=== PATIENT | female | born 1985 | race Caucasian/White ===

== ENCOUNTER 2023-08-18 20:12 | Outpatient (REF) | payer SELFPAY ==
[2023-08-21 15:09] LABS: Age Gdln ACOG Testing Note (.); HPV Aptima Negative (Negative); IGP, Aptima HPV, rfx 16/18,45 Note (.)
== END 2023-08-18 20:13 | disposition home or self-care (01) ==
LOC: LAB 20:12
PROVIDERS: Visit Provider Physician Assistant
DX: Z12.4 Encounter for screening for malignant neoplasm of cervix (principal)
CPT/HCPCS: 87624; G0145

== ENCOUNTER 2024-10-06 11:03 | Emergency (ER) | payer BC, SELFPAY ==
[2024-10-06 11:08] VITALS: BP 138/85; PULSE 87; TEMP 37; O2SAT 100; BMI 25.6
--- NOTE | 2024-10-06 11:12 | CT_ITS ---
[address] [address] Patient Name: AUSTEN SHANNON MRN: [id number] date: 1985 Sex: F Assigned Patient Location: ER Current Patient Location: .[facility] Accession/Order Number: [id number] Exam Date: 10/06/2024 11:24 Report Date: 10/06/2024 12:40 At the request of: WINNIE GIBSON Procedure: CT abdomen pelvis wo con EXAMINATION: CT abdomen pelvis wo con HISTORY: R flank/abd pain COMPARISON: No relevant comparison available. TECHNIQUE: Axial, Coronal, and Sagittal images were obtained without and/or with IV contrast as indicated by examination type. Dose reduction techniques were achieved by using automated exposure control and/or adjustment of mA and/or kV according to patient size and/or use of iterative reconstruction technique. FINDINGS: LUNG BASES: No visible pulmonary or pleural disease. LIVER: A few small hypodensities favoring cysts or hemangiomas. No enlargement, atrophy, suspicious density, or significant focal lesion. BILIARY: No dilatation or calcification. PANCREAS: No lesion, fluid collection, or abnormal duct dilatation. SPLEEN: No enlargement or focal lesion. ADRENALS: No mass or enlargement. KIDNEYS: No mass, obstruction, or calcification. BOWEL/MESENTERY: No visible mass, obstruction, or bowel wall thickening. Normal appendix. AORTA/VASCULAR: No aneurysm or dissection. RETROPERITONEUM: No mass or adenopathy. LYMPH NODES: No adenopathy. URINARY BLADDER: No visible focal wall thickening, lesion, or calculus. PELVIC ORGANS: No visible mass. Pelvic organs appropriate for patient age. ABDOMINAL WALL: No mass or hernia. BONES: No bony lesion or fracture. OTHER: Negative. CT/CT abdomen pelvis wo con IMPRESSION: 1. No abnormal or suspicious findings to account for patient's symptoms. Electronically authenticated by: JULIET MCELROY Date: 10/06/2024 12:40
[2024-10-06] MEDS: ONDANSETRON PF 4 MG/2 ML VIAL IV (11:21)
[2024-10-06] MEDS: KETOROLAC TROMETHAMINE 30 MG/ML VIAL 15 MG IVP ×2 (11:23→13:12)
[2024-10-06 11:27] LABS: Basophils Absolute Auto 0.1 10^3/uL (0.0-0.1); Basophils Percent Auto 0.5 % (0.2-2.0); Eosinophils Absolute Auto 0.1 10^3/uL (0.0-0.7); Eosinophils Percent Auto 0.9 % (0.9-7.0); Hematocrit 42.1 % (36.0-48.0); Hemoglobin 14.3 g/dL (12.0-16.0); Immature Granulocytes Abs Auto 0.04 10^3/uL (0.00-0.03); Immature Granulocytes Pct Auto 0.4 % (0.0-0.5); Lymphocytes Percent Auto 19.3 % (20.5-60.0); Mean Corpuscular Hemoglobin 31.5 pg (26.7-34.0); Mean Corpuscular Volume 92.7 fL (81.0-99.0); Mean Platelet Volume 9.1 fL (9.5-13.5); Monocytes Absolute Auto 0.6 10^3/uL (0.3-0.8); Monocytes Percent Auto 6.1 % (1.7-12.0); Neutrophils Absolute Auto 7.5 10^3/uL (1.4-6.5); Neutrophils Percent Auto 72.8 % (43.0-75.0); Platelet Count 331 10^3/uL (150-450); Red Blood Count 4.54 10^6/uL (4.20-5.40); Red Cell Distribution Width 11.1 % (11.0-15.0); White Blood Count 10.3 10^3/uL (4.0-11.0)
[2024-10-06 11:28] LABS: Bilirubin Urine NEGATIVE (NEGATIVE); Blood Urine NEGATIVE (NEGATIVE); Clarity Urine SL CLOUDY (CLEAR); Color Urine YELLOW (YELLOW); Glucose Urine UA NEGATIVE (NEGATIVE); Ketones Urine 15 mg/dL (NEGATIVE); Leukocyte Esterase Urine TRACE (NEGATIVE); Nitrite Urine NEGATIVE (NEGATIVE); Protein Urine TRACE mg/dL (NEG/TRACE); pH Urine 7.5 (5.0-9.0)
[2024-10-06 11:30] LABS: Urine Microscopic Indicated YES
--- NOTE | 2024-10-06 11:30 | ED_ITS ---
HPI HPI - General Adult General Chief complaint: Abdominal Pain Stated complaint: ABDOMINAL PAIN Time Seen by Provider: 10/06/24 11:04 Source: patient Mode of arrival: walk-in Limitations: no limitations History of Present Illness HPI narrative: Patient presents to ED complaining of right sided abdominal pain and flank pain. She said she noticed a little bit of flank pain and stomach pain on Thursday and she took some Zofran and it seemed to get a little bit better. It sort of been on and off since then but today it came on much much stronger. She has pain in the right flank that radiates to the right mid abdomen but also has right upper quadrant and right lower quadrant pain as well. Nausea no vomiting. No fevers. She does have pain with palpation and movement. She has been able to go to the bathroom no difficulties with urination or bowel movements. Patient denies any history of kidney stones or gallstones. She has had her tubes removed in the past. No other abdominal surgeries she does still have her appendix. She is tearful from the pain but otherwise alert and oriented Related Data Home Medications ?Medication ?Instructions ?Recorded ?Confirmed bupropion HCl 300 mg 24 hr tablet, 300 mg PO BEDTIME 10/06/24 10/06/24 extended release buspirone 15 mg tablet 15 mg PO TID 10/06/24 10/06/24 dextroamphetamine-amphetamine 20 20 mg PO BID 10/06/24 10/06/24 mg tablet escitalopram oxalate 10 mg tablet 10 mg PO DAILY 10/06/24 10/06/24 lamotrigine 25 mg tablet 25 mg PO DAILY 10/06/24 10/06/24 Previous Rx's ?Medication ?Instructions ?Recorded cephalexin 500 mg capsule 500 mg PO BID 7 days #14 caps 10/06/24 ketorolac 10 mg tablet 10 mg PO Q8H PRN pain 7 days #14 10/06/24 tabs Allergies Allergy/AdvReac Type Severity Reaction Status Date / Time amoxicillin (From Augmentin) AdvReac Mild Vomiting Verified 10/06/24 11:12 clavulanic acid (From AdvReac Mild Vomiting Verified 10/06/24 11:12 Augmentin) Opioid HPI Opioid Management Most Recent Opioid Data: Last Pain Scale 10 10/06/24 11:25 10/06/24 Last MAR Pain Assessment 10/06/24 11:23 Review of Systems ROS Status of ROS 10 or more systems reviewed and unremark able except as noted in history and below Exam Narrative Exam Narrative: Time Seen: [] Vital Signs: [Per nurse's notes.] General: [Alert] Skin: [Warm, dry, no rash.] Head: [Normocephalic, atraumatic.] Neck: [Supple, trachea midline.] Eye: [Pupils are equal, round and reactive to light, extraocular movements are intact, normal conjunctiva.] Ears, nose, mouth and throat: oral mucosa moist. Cardiovascular: [Regular rate and rhythm, no murmur.] Respiratory: [Lungs are clear to auscultation, respirations are non-labored, breath sounds are equal.] Chest wall: [No tenderness, no deformity.] Gastrointestinal: [Soft, tenderness to palpation right upper quadrant right mid abdomen and right lower quadrant. Right CVA tenderness. Patient does have some guarding on that right side as well. MSK: 5 out of 5 muscle strength x 4 extremities no calf pain or edema Lymphatics: [No lymphadenopathy.] Psychiatric: [Cooperative, appropriate mood & affect.] Tearful from pain otherwise appropriate Neurological: [Alert and oriented to person, place, time, and situation, no focal neurological deficit observed.] Constitutional Vital Signs, click to edit/add: Last Vital Signs Temp 98.6 F 10/06/24 11:08 Pulse 78 10/06/24 12:36 Resp 18 10/06/24 12:36 BP 103/55 10/06/24 12:36 Pulse Ox 100 10/06/24 12:36 O2 Del Method Room Air 10/06/24 12:36 Course Vital Signs Vital signs: Vital Signs Temperature 98.6 F 10/06/24 11:08 Pulse Rate 87 10/06/24 11:08 Respiratory Rate 20 10/06/24 11:08 Blood Pressure 138/85 10/06/24 11:08 Pulse Oximetry 100 10/06/24 11:08 Oxygen Delivery Method Room Air 10/06/24 11:08 Temperature 98.6 F 10/06/24 11:08 Pulse Rate 78 10/06/24 12:36 Respiratory Rate 18 10/06/24 12:36 Blood Pressure 103/55 10/06/24 12:36 Pulse Oximetry 100 10/06/24 12:36 Oxygen Delivery Method Room Air 10/06/24 12:36 Medical Decision Making MDM Narrative Medical decision making narrative: Patient's labs show UTI otherwise negative. Vital signs stable. CT scan shows no acute findings, no kidney stone no gallstones no gallbladder inflammation and no acute appendicitis. Patient does have some prominent stool on the right side of the abdomen. She states she has been having bowel movements. Patient is feeling better after Toradol and Zofran. She was given a prescription for ketorolac and Keflex for home. She was given 1 dose of IV antibiotics here. Return to ED if worsening symptoms otherwise follow-up with family doctor. Patient and family are comfortable care plan for home Differential Diagnosis Differential Diagnosis: UTI, pyelonephritis, kidney stone, acute appendicitis, acute cholecystitis, Medical Records Medical records reviewed: Yes I reviewed the patient's medical records Lab Data Lab results reviewed: Yes I reviewed the patient's lab results Labs: Lab Results 10/06/24 10/06/24 Range/Units 11:17 11:20 WBC 10.3 (4.0-11.0) 10^3/uL RBC 4.54 (4.20-5.40) 10^6/uL Hgb 14.3 (12.0-16.0) g/dL Hct 42.1 (36.0-48.0) % MCV 92.7 (81.0-99.0) fL MCH 31.5 (26.7-34.0) pg MCHC 34.0 (29.9-35.2) g/dL RDW 11.1 (11.0-15.0) % Plt Count 331 (150-450) 10^3/uL MPV 9.1 L (9.5-13.5) fL Neut % (Auto) 72.8 (43.0-75.0) % Lymph % (Auto) 19.3 L (20.5-60.0) % Stevens % (Auto) 6.1 (1.7-12.0) % Eos % (Auto) 0.9 (0.9-7.0) % Baso % (Auto) 0.5 (0.2-2.0) % Neut # (Auto) 7.5 H (1.4-6.5) 10^3/uL Lymph # (Auto) 2.0 (1.2-3.8) 10^3/uL Stevens # (Auto) 0.6 (0.3-0.8) 10^3/uL Eos # (Auto) 0.1 (0.0-0.7) 10^3/uL Baso # (Auto) 0.1 (0.0-0.1) 10^3/uL Abs Immat Gran (auto) 0.04 H (0.00-0.03) 10^3/uL Imm/Tot Granulo (auto) 0.4 (0.0-0.5) % Sodium 139 (136-145) mmol/L Potassium 4.0 (3.5-5.1) mmol/L Chloride 102 (98-107) mmol/L Carbon Dioxide 25.8 (21.0-32.0) mmol/L Anion Gap 15.2 BUN 12.0 (7.0-18.0) mg/dL Creatinine 0.85 (0.55-1.02) mg/dL Est GFR ( Amer) >60 (>=60 mL/min/1.73m^2) Est GFR (Non-Af Amer) >60 (>=60 mL/min/1.73m^2) BUN/Creatinine Ratio 14.1 Glucose 96 (74-106) mg/dL Calcium 8.9 (8.5-10.1) mg/dL Total Bilirubin 0.5 (0.2-1.0) mg/dL AST 16 (15-37) U/L ALT 26 (14-59) U/L Alkaline Phosphatase 63 (46-116) U/L Total Protein 7.3 (6.4-8.2) g/dL Albumin 4.1 (3.4-5.0) g/dL Globulin 3.2 g/dL Albumin/Globulin Ratio 1.3 Lipase 40.0 (16.0-77.0) U/L Urine Color Yellow (YELLOW) Urine Clarity Sl cloudy (CLEAR) Urine pH 7.5 (5.0-9.0) Ur Specific [place] 1.020 (1.005-1.025) Urine Protein Trace (NEG/TRACE) mg/dL Urine Glucose (UA) Negative (NEGATIVE) mg/dL Urine Ketones 15 A (NEGATIVE) mg/dL Urine Occult Blood Negative (NEGATIVE) Urine Nitrite Negative (NEGATIVE) Urine Bilirubin Negative (NEGATIVE) Urine Urobilinogen 1.0 (0.2-1.0) EU/dL Ur Leukocyte Esterase Trace A (NEGATIVE) Urine RBC 0-2 (0-2) #/HPF Urine WBC 0-2 A (NONE SEEN) #/HPF Ur Squamous Epith Cells Few A (NONE/RARE) #/LPF Urine Crystals Seen A (None Seen) #/HPF Amorphous Sediment Moderate Urine Bacteria Moderate A (NONE SEEN) #/HPF Urine Casts None seen (NONE SEEN) #/LPF Urine Mucus Trace A (NONE SEEN) Ur Culture Indicated? Yes Imaging Data CT scan - abdomen: Radiologist's impression: ITS Impressions Abdomen/Pelvis CT 10/06/24 11:12 IMPRESSION: 1. No abnormal or suspicious findings to account for patient's symptoms. Electronically authenticated by: JULIET MCELROY Date: 10/06/2024 12:40 Discharge Plan Discharge Chief Complaint: Abdominal Pain Clinical Impression: UTI (urinary tract infection) Patient Disposition: Home, Self-Care Time of Disposition Decision: 13:11 Condition: Good Mode of Transportation: Private Vehicle Prescriptions / Home Meds: New cephalexin 500 mg capsule 500 mg PO BID 7 Days Qty: 14 0RF ketorolac 10 mg tablet 10 mg PO Q8H PRN (Reason: pain) 7 Days Qty: 14 0RF No Action bupropion HCl 300 mg tablet extended release 24 hr 300 mg PO BEDTIME dextroamphetamine-amphetamine 20 mg tablet 20 mg PO BID escitalopram oxalate 10 mg tablet 10 mg PO DAILY lamotrigine 25 mg tablet 25 mg PO DAILY buspirone 15 mg tablet 15 mg PO TID Print Language: Greenlandic Instructions: Urinary Tract Infection in Women (ED) Referrals: Martha Coy RN [Emergency Nurse] - 1 week Physician,Non-Staff, MD [Primary Care Provider] - 1 week Discharge Date/Time: 10/06/24 14:04
[2024-10-06 11:35] LABS: Bacteria Urine MODERATE #/HPF (NONE SEEN); Crystals Seen? Seen #/HPF (None Seen); Mucus Urine TRACE (NONE SEEN); RBC Urine 0-2 #/HPF (0-2); Squamous Epithelial Cell Urine FEW #/LPF (NONE/RARE); WBC Urine 0-2 #/HPF (NONE SEEN)
[2024-10-06 11:36] LABS: Amorphous Sediment Urine MODERATE; Cast Seen? NONE SEEN #/LPF (NONE SEEN); Urine Culture Indicated YES
[2024-10-06 11:40] LABS: Alanine Aminotransferase 26 U/L (14-59); Albumin Globulin Ratio 1.3; Albumin Level 4.1 g/dL (3.4-5.0); Alkaline Phosphatase 63 U/L (46-116); Anion Gap 15.2; Aspartate Amino Transferase 16 U/L (15-37); BUN Creatinine Ratio 14.1; Bilirubin Total 0.5 mg/dL (0.2-1.0); Calcium 8.9 mg/dL (8.5-10.1); Carbon Dioxide 25.8 mmol/L (21.0-32.0); Chloride 102 mmol/L (98-107); Estimated GFR (African America >60 (>=60 mL/min/1.73m^2); Estimated GFR (Non-African Ame >60 (>=60 mL/min/1.73m^2); Globulin 3.2 g/dL; Glucose 96 mg/dL (74-106); Sodium 139 mmol/L (136-145); Total Protein 7.3 g/dL (6.4-8.2)
[2024-10-06 12:36] VITALS: BP 103/55; PULSE 78; O2SAT 100
[2024-10-06] MEDS: CEFTRIAXONE 1,000 MG in 0.9 % SODIUM CHLORIDE 50 ML 100 MG IV (13:13)
== END 2024-10-06 14:04 | disposition home or self-care (01) ==
LOC: ER 11:46
PROVIDERS: Emergency Provider Emergency Medicine
DX: N39.0 Urinary tract infection, site not specified (principal)
CPT/HCPCS: 36415; 74176; 80053; 81001; 83690; 85025; 87086; 96365; 96375; 96376; 99284; J0696; J1885; J2405